=== PATIENT | female | born 1975 | race Caucasian/White ===

== ENCOUNTER → 2018-02-26 11:30 | Outpatient (CLI) | payer OTHER, SELFPAY ==
--- NOTE | 2018-02-26 11:31 | DI.RAD.S_ITS ---
PROCEDURE: XR WRIST LT MIN 3V INDICATIONS: left wrist pain TECHNIQUE: 4 views of the wrist were acquired. COMPARISON: None. FINDINGS: Bones: No fractures or dislocations. No suspicious bony lesions. Scaphoid view: Scaphoid is intact Soft tissues: No suspicious soft tissue calcifications. IMPRESSION: Unremarkable radiographic examination of left wrist. Dictated by: Israel Rivers M.D. on 02/26/2018 at 13:22 Approved by: Israel Rivers M.D. on 02/26/2018 at 13:25
== END ==
PROVIDERS: Family Provider Family Medicine; PCP Family Medicine; Visit Provider Family Medicine
DX: M25.532 Pain in left wrist (principal)
CPT/HCPCS: 73110

== ENCOUNTER 2018-03-19 16:45 | Outpatient (RCR) | payer OTHER, SELFPAY ==
--- NOTE | 2018-03-01 16:45 | PT.OIE ---
Current Diagnoses Carpal tunnel syndrome, left upper limb (03/01/18) Pain in left wrist (03/01/18) Muscle weakness (generalized) (03/01/18) Other enthesopathies, not elsewhere classified (03/01/18) Past Medical History (Last Reviewed 02/26/18 @ 16:02 by Corina Mandujano LPN) Hypothyroidism (Chronic) Past Surgical History (Last Reviewed 02/26/18 @ 16:02 by Corina Mandujano LPN) History of third molar tooth extraction (Resolved 1995) Provider Visit Care Team Role Provider Type Leonard Dave MD Attending Provider Physician Family Provider Primary Care Provider Specialty: Family Practice Address: [address] [place] [address], [facility] Email: [email or web address] Physical Therapy Initial Evaluation PT-OP-A Visit Information Start: 03/02/18 08:36 Freq: Status: Active Protocol: Document 03/01/18 16:45 DCW (Rec: 03/02/18 08:58 DC [id number]) Out-Patient Physical Therapy Visit Information Visit Information Visit Type Initial Evaluation Visit Start Time 16:45 Visit Stop Time 17:30 Total Visit Minutes 45 Visit Number 1 Number of CLINIC PHYSICIAN Visits 0 Evaluation Information Evaluation Date 03/01/18 PT-OP-B Current Condition Start: 03/02/18 08:36 Freq: Status: Active Protocol: Document 03/01/18 16:45 DCW (Rec: 03/02/18 08:58 [facility] [id number]) Current Condition History of Current Condition Onset Date s/p 5 weeks Current Complaints left wrist pain, weakness History of Current Condition Pt is a 43 year old female presenting with a five week history of left wrist and hand pain. Pt reports that she spent the day water tubing, and thinks she must have been holding on too tightly to the boat pull, because she has been in significant pain ever since. Pt notes the pain limits a lot of her function, making it difficult to cut vegetables, go mountain biking , play her ukulele, or do house work. Pt reports she has been wearing a brace over the last week, which has helped her some, mainly as a reminder to not use her hand, as she does often accidently use it, since she is left-handed. Pt recently had an x-ray taken, which was entirely negative. Treatment Goals Patient/Caregiver Goals I want to get rid of the pain , and to get my hand working again. Prior Functional Status Baseline Function- ADL's Independent Baseline Function- Mobility Independent Baseline Function- Recreation/[place] biking, ukulele Current Functional Impairments (Reported) Functional Limitations- ADL's Difficulty with meal prep and house work. Functional Limitations- Recreation/ Unable to dock guard handlebars of [employer], unable to play chords on her ukDoublePlay Entertainmentle PT-OP-C Subjective Start: 03/02/18 08:36 Freq: Status: Active Protocol: Document 03/01/18 16:45 DCW (Rec: 03/02/18 08:58 DCW [id number]) Patient Questionnaires Quick Dash- Upper Extremity Quick Dash UE Score 77.27 Quick Dash UE Impairment 60 to 79% Impaired (Score 60- 79) OP-PT Pain Assessment Pain Assessment Grid Paper Pain Assessment Grid Completed Yes Location Left Wrist Pain Location Details Palmar surface of wrist, radiating pain to thenar eminence Intensity 5 Scale Used Numeric (1 - 10) Description Sharp Shooting Stabbing Frequency Constant Variations/Patterns Constant 4-5/10 pain, increasing to 7/10 with use Pain Alleviating Factors Cold Splinting PT-OP-F Manual Assessment Start: 03/02/18 08:36 Freq: Status: Active Protocol: Document 03/01/18 16:45 DCW (Rec: 03/02/18 08:58 DCW [id number]) Manual Assessments Soft Tissue Assessment Soft Tissue Mobility Assessment Generalize tenderness over palmar surface of carpals, 3/4 - Wincing and withdrawal. No noted wasting at thenar or hypothenar eminence Joint Mobility Assessment Joint Mobility Assessment Joint mobility WNL, no limitations, no apparent laxity. Pain with ulnar deviation and wrist flexion PT-OP-L Special Tests Start: 03/02/18 08:36 Freq: Status: Active Protocol: Document 03/01/18 16:45 DCW (Rec: 03/02/18 08:58 DCW [id number]) Special Tests Wrist/Hand Special Tests Tinel Sign Test Results Positive over median nerve Revers Phalen's Test Test Results Positive Phalen's Test Test Results Negative Sandra's Test Results Negative PT-OP-M Strength Start: 03/02/18 08:36 Freq: Status: Active Protocol: Document 03/01/18 16:45 DCW (Rec: 03/02/18 08:58 DCW [id number]) Wrist Strength Wrist Manual Muscle Testing Left Flexion (C7) 3+ Fair+ Extension (C6) 5 Normal Ulnar Deviation 4- Good- Radial Deviation 5 Normal Comments Appeared to be limited more by pain than true weakness Hand Medical Appointment Scheduler/Pinch Strength Hand Dominance Hand Dominance Left Hand Strength Right Medical Appointment Scheduler (lbs) 60 Comments three trial average Left Medical Appointment Scheduler (lbs) 53.3 Comments three trial average PT-OP-Q Treatments Start: 03/02/18 08:36 Freq: Status: Active Protocol: Document 03/01/18 16:45 DCW (Rec: 03/02/18 08:58 DCW [id number]) Therapeutic Exercises Sitting Exercises 3 Sitting Exercise Name Ulnar Deviation Side left Resistance Lv 1 Equipment Used T-band 2 Sitting Exercise Name Wrist flexion Side left Resistance Lv 1 Equipment Used T-band 1 Sitting Exercise Name Thera-putty dock guard strengthening Side left Resistance Green PT-OP-R Modalities Start: 03/02/18 08:36 Freq: Status: Active Protocol: Document 03/01/18 16:45 DCW (Rec: 03/02/18 10:45 DCW [id number]) Ultrasound Therapy Treatment Left Volar Wrist Treatment Duration (minutes) 5 Patient Position Sitting Coupling Medium Ultrasound Gel Applicator Size (cm2) 2 Frequency Setting (mHz) 3 Duty Cycle 50% Intensity Setting (w/cm2) 0.8 PT-OP-T Assessment and Plan Start: 03/02/18 08:36 Freq: Status: Active Protocol: Document 03/01/18 16:45 DCW (Rec: 03/02/18 08:58 DCW [id number]) Physical Therapy Assessment Rehab Potential Rehabilitation Potential Good Evaluation Complexity Number of Personal Factors/Comorbidities 0 Number of Body Systems Impaired 1-2 Clinical Presentation at Evaluation Stable Impairments Impairments Functional Mobility Pain Soft Tissue Mobility Strength Goals Four Impairment Activity participation Short Term Goal (STG) Pt to perform food prep for family meals with no pain for one full week STG Duration 03/31/18 Tdp Displays Analyst Goal (LTG) Pt to play [employer] in [place] for 30 minutes with no increased symptoms LTG Duration 05/01/18 Three Impairment Medical Appointment Scheduler Strength Short Term Goal (STG) Three-trail average dock guard strength L=R STG Duration 03/31/18 Two Impairment Positive Special Testing Tdp Displays Analyst Goal (LTG) Negative Reverse Phalen's test Negative Tinel sign LTG Duration 05/01/18 One Impairment Pt does not have an appropriate Home Exercise Program Short Term Goal (STG) Pt to be independent and consistent with HEP STG Duration 03/31/18 Assessment Summary Assessment Pt presents with signs and symptoms of left wrist flexor tendonitis secondary to overuse, with an additional complication of the swelling and inflammation likely causing carpal tunnel syndrome /compression. In order for the patient to return to her normal daily and recreational activities, she will likely benefit from skilled therapy focusing on improving strength and wrist mobility, increasing dock guard strength, and decreasing median nerve impingement. Pt should also benefit from modalities such as ultrasound and iontophoresis (/c Dexamethasone) to decrease inflammation. Physical Therapy Plan Frequency and Duration Frequency of Treatment 2x/Week Duration of Treatment 12 weeks Plan of Care Start Date 03/01/18 Plan of Care End Date 05/24/18 Therapeutic Interventions Therapeutic Interventions Home Exercise Program Joint Mobilizations Manual Therapy Self-Care/Home Management Soft Tissue Mobilization Therapeutic Activities Therapeutic Exercises Modalities Cold Pack/Ice Massage Electric Stimulation Hot Packs Iontophoresis Ultrasound Next Visit Focus/Plan Next Note Type Treatment Note Next Visit Plan US, Ionto, wrist strengthening , manual therapy
--- NOTE | 2018-03-01 16:45 | PT.OPPOC ---
Current Diagnoses Carpal tunnel syndrome, left upper limb (03/01/18) Pain in left wrist (03/01/18) Muscle weakness (generalized) (03/01/18) Other enthesopathies, not elsewhere classified (03/01/18) Provider Visit Care Team Role Provider Type Leonard Dave MD Attending Provider Physician Family Provider Primary Care Provider Specialty: Family Practice Address: [address] [place] [address], [facility] Email: [email or web address] Plan Of Care PT-OP-T Assessment and Plan Start: 03/02/18 08:36 Freq: Status: Active Protocol: Document 03/01/18 16:45 DCW (Rec: 03/02/18 08:58 DCW [id number]) Physical Therapy Assessment Rehab Potential Rehabilitation Potential Good Evaluation Complexity Number of Personal Factors/Comorbidities 0 Number of Body Systems Impaired 1-2 Clinical Presentation at Evaluation Stable Impairments Impairments Functional Mobility Pain Soft Tissue Mobility Strength Goals Four Impairment Activity participation Short Term Goal (STG) Pt to perform food prep for family meals with no pain for one full week STG Duration 03/31/18 Intermediate Goal (LTG) Pt to play ukulele for 30 minutes with no increased symptoms LTG Duration 05/01/18 Three Impairment Councilperson Strength Short Term Goal (STG) Three-trail average animal ride attendant strength L=R STG Duration 03/31/18 Two Impairment Positive Special Testing Applied Psychology Chair Goal (LTG) Negative Reverse Phalen's test Negative Tinel sign LTG Duration 05/01/18 One Impairment Pt does not have an appropriate Home Exercise Program Short Term Goal (STG) Pt to be independent and consistent with HEP STG Duration 03/31/18 Assessment Summary Assessment Pt presents with signs and symptoms of left wrist flexor tendonitis secondary to overuse, with an additional complication of the swelling and inflammation likely causing carpal tunnel syndrome /compression. In order for the patient to return to her normal daily and recreational activities, she will likely benefit from skilled therapy focusing on improving strength and wrist mobility, increasing animal ride attendant strength, and decreasing median nerve impingement. Pt should also benefit from modalities such as ultrasound and iontophoresis (/c Dexamethasone) to decrease inflammation. Physical Therapy Plan Frequency and Duration Frequency of Treatment 2x/Week Duration of Treatment 12 weeks Plan of Care Start Date 03/01/18 Plan of Care End Date 05/24/18 Therapeutic Interventions Therapeutic Interventions Home Exercise Program Joint Mobilizations Manual Therapy Self-Care/Home Management Soft Tissue Mobilization Therapeutic Activities Therapeutic Exercises Modalities Cold Pack/Ice Massage Electric Stimulation Hot Packs Iontophoresis Ultrasound Next Visit Focus/Plan Next Note Type Treatment Note Next Visit Plan US, Ionto, wrist strengthening , manual therapy Plan of Care Dates Plan of Care Start Date 03/01/18 Plan of Care End Date 05/24/18 Please Sign and Return: I have reviewed this Plan of Care and certify that the skilled therapy services above are required to meet the patient?s needs. Physician Signature Date Printed Name and Credentials Clinical Instructor Signature Printed Name and Credentials
--- NOTE | 2018-03-06 10:02 | PT.OTN ---
Current Diagnoses Other enthesopathies, not elsewhere classified (03/06/18) Physical Therapy Treatment Note PT-OP-A Visit Information Start: 03/02/18 08:36 Freq: Status: Active Protocol: Document 03/06/18 09:03 LRN (Rec: 03/06/18 09:43 LRN [id number]) Out-Patient Physical Therapy Visit Information Visit Information Visit Type Treatment Note Visit Start Time 09:03 Visit Stop Time 09:48 Total Visit Minutes 45 Visit Number 2 Number of OBSTETRICAL NURSE Visits 0 Evaluation Information Evaluation Date 03/01/18 PT-OP-B Current Condition Start: 03/02/18 08:36 Freq: Status: Active Protocol: Document 03/01/18 16:45 DCW (Rec: 03/02/18 08:58 DCW [id number]) Current Condition History of Current Condition Onset Date s/p 5 weeks Current Complaints left wrist pain, weakness History of Current Condition Pt is a 43 year old female presenting with a five week history of left wrist and hand pain. Pt reports that she spent the day water tubing, and thinks she must have been holding on too tightly to the boat pull, because she has been in significant pain ever since. Pt notes the pain limits a lot of her function, making it difficult to cut vegetables, go mountain biking , play her ukulele, or do house work. Pt reports she has been wearing a brace over the last week, which has helped her some, mainly as a reminder to not use her hand, as she does often accidently use it, since she is left-handed. Pt recently had an x-ray taken, which was entirely negative. Treatment Goals Patient/Caregiver Goals I want to get rid of the pain , and to get my hand working again. Prior Functional Status Baseline Function- ADL's Independent Baseline Function- Mobility Independent Baseline Function- Recreation/Hobbies Mountain biking, ukulele Current Functional Impairments (Reported) Functional Limitations- ADL's Difficulty with meal prep and house work. Functional Limitations- Recreation/ Unable to caustic mixer handlebars of [employer] mountain, unable to play chords on her ukulele PT-OP-C Subjective Start: 03/02/18 08:36 Freq: Status: Active Protocol: Document 03/06/18 09:03 LRN (Rec: 03/06/18 09:43 LRN [id number]) OP-PT Subjective Patient Comments Patient Comments Has been doing the ex but she is sore. Pain is 2/10. Wearing a brace at night and feels swollen at night. Patient Reported Progress Improving PT-OP-F Manual Assessment Start: 03/02/18 08:36 Freq: Status: Active Protocol: Document 03/01/18 16:45 DCW (Rec: 03/02/18 08:58 DCW [id number]) Manual Assessments Soft Tissue Assessment Soft Tissue Mobility Assessment Generalize tenderness over palmar surface of carpals, 3/4 - Wincing and withdrawal. No noted wasting at thenar or hypothenar eminence Joint Mobility Assessment Joint Mobility Assessment Joint mobility WNL, no limitations, no apparent laxity. Pain with ulnar deviation and wrist flexion PT-OP-L Special Tests Start: 03/02/18 08:36 Freq: Status: Active Protocol: Document 03/01/18 16:45 DCW (Rec: 03/02/18 08:58 DCW [id number]) Special Tests Wrist/Hand Special Tests Tinel Sign Test Results Positive over median nerve Revers Phalen's Test Test Results Positive Phalen's Test Test Results Negative Sandra's Test Results Negative PT-OP-M Strength Start: 03/02/18 08:36 Freq: Status: Active Protocol: Document 03/01/18 16:45 DCW (Rec: 03/02/18 08:58 DCW [id number]) Wrist Strength Wrist Manual Muscle Testing Left Flexion (C7) 3+ Fair+ Extension (C6) 5 Normal Ulnar Deviation 4- Good- Radial Deviation 5 Normal Comments Appeared to be limited more by pain than true weakness Hand Watermelon Inspector/Pinch Strength Hand Dominance Hand Dominance Left Hand Strength Right Watermelon Inspector (lbs) 60 Comments three trial average Left Watermelon Inspector (lbs) 53.3 Comments three trial average PT-OP-Q Treatments Start: 03/02/18 08:36 Freq: Status: Active Protocol: Document 03/06/18 09:03 LRN (Rec: 03/06/18 09:43 LRN [id number]) Therapeutic Exercises Supine Exercises 1 Supine Exercise Name Stretch to wrist flexors Side left Comments Self assist & Gentle assist for training Sitting Exercises 3 Sitting Exercise Name Ulnar Deviation Side left Resistance Lv 1 Equipment Used T-band 2 Sitting Exercise Name Wrist flexion/extension Side left Resistance Lv 1 Equipment Used T-band 1 Sitting Exercise Name Thera-putty caustic mixer & finger strengthening Side left Resistance Green Manual Therapy Treatment Soft Tissue Mobilization 1 Body Location L wrist flexors Mobilization Type Cross-Friction Strumming Intensity/Depth Superficial Body Position Supine Comments Depth: As tolerated PT-OP-R Modalities Start: 03/02/18 08:36 Freq: Status: Active Protocol: Document 03/06/18 09:03 LRN (Rec: 03/06/18 09:43 LRN [id number]) Hot Pack/Cold Pack Treatment Cold Pack Location L wrist flexors Patient Position Supine Treatment Duration (minutes) 10 Ultrasound Therapy Treatment Left Volar Wrist Treatment Duration (minutes) 8 Patient Position Supine Coupling Medium Ultrasound Gel Applicator Size (cm2) 2 Frequency Setting (mHz) 3 Mode Setting Pulsed Duty Cycle 50% Intensity Setting (w/cm2) 1.0 PT-OP-T Assessment and Plan Start: 03/02/18 08:36 Freq: Status: Active Protocol: Document 03/06/18 09:03 LRN (Rec: 03/06/18 09:43 LRN [id number]) Physical Therapy Assessment Progress Towards Goals Progress Towards Goals Progressing Toward Goals Assessment Summary Assessment Pain is less. Swelling in L wrist flexors, decreased L wrist ext due to soft tissue tightness. Wrist improved. Further assessment and self care instructions needed for nighttime and throughout the day. Physical Therapy Plan Frequency and Duration Frequency of Treatment 2x/Week Duration of Treatment 12 weeks Plan of Care Start Date 03/01/18 Plan of Care End Date 05/24/18 Next Visit Focus/Plan Next Note Type Treatment Note Next Visit Plan US, Ionto, wrist stretching & strengthening, manual therapy.
--- NOTE | 2018-03-13 14:49 | PT.OTN ---
Current Diagnoses Other enthesopathies, not elsewhere classified (03/13/18) Physical Therapy Treatment Note PT-OP-A Visit Information Start: 03/02/18 08:36 Freq: Status: Active Protocol: Document 03/13/18 09:05 LRN (Rec: 03/13/18 09:51 LRN [id number]) Out-Patient Physical Therapy Visit Information Visit Information Visit Type Treatment Note Visit Start Time 09:05 Visit Stop Time 09:55 Total Visit Minutes 50 Visit Number 3 Number of ROUTE DELIVERY CLERK Visits 0 Evaluation Information Evaluation Date 03/01/18 PT-OP-B Current Condition Start: 03/02/18 08:36 Freq: Status: Active Protocol: Document 03/01/18 16:45 DCW (Rec: 03/02/18 08:58 DCW [id number]) Current Condition History of Current Condition Onset Date s/p 5 weeks Current Complaints left wrist pain, weakness History of Current Condition Pt is a 43 year old female presenting with a five week history of left wrist and hand pain. Pt reports that she spent the day water tubing, and thinks she must have been holding on too tightly to the boat pull, because she has been in significant pain ever since. Pt notes the pain limits a lot of her function, making it difficult to cut vegetables, go mountain biking , play her ukulele, or do house work. Pt reports she has been wearing a brace over the last week, which has helped her some, mainly as a reminder to not use her hand, as she does often accidently use it, since she is left-handed. Pt recently had an x-ray taken, which was entirely negative. Treatment Goals Patient/Caregiver Goals I want to get rid of the pain , and to get my hand working again. Prior Functional Status Baseline Function- ADL's Independent Baseline Function- Mobility Independent Baseline Function- Recreation/Hobbies Mountain biking, ukulele Current Functional Impairments (Reported) Functional Limitations- ADL's Difficulty with meal prep and house work. Functional Limitations- Recreation/ Unable to restuarant crew worker handlebars of Hobbies mountain, unable to play chords on her ukulele PT-OP-C Subjective Start: 03/02/18 08:36 Freq: Status: Active Protocol: Document 03/13/18 09:05 LRN (Rec: 03/13/18 09:51 LRN [id number]) OP-PT Subjective Patient Comments Patient Comments Improvement not as significant . Pt started back doing yoga and mountain bike riding the past few days because she felt so good. The activities caused onset of pain. Can write some without pain. Pain no longer constant. Patient Reported Progress Improving OP-PT Pain Assessment Pain Assessment Grid Paper Pain Assessment Grid Completed No Location Left Wrist Pain Location Details Palmar surface of wrist, radiating pain to thenar eminence Intensity 5 Scale Used Numeric (1 - 10) Description Aching Pressure Frequency Intermittent Variations/Patterns 7/10 with use Pain Alleviating Factors Cold Splinting PT-OP-F Manual Assessment Start: 03/02/18 08:36 Freq: Status: Active Protocol: Document 03/01/18 16:45 DCW (Rec: 03/02/18 08:58 DCW [id number]) Manual Assessments Soft Tissue Assessment Soft Tissue Mobility Assessment Generalize tenderness over palmar surface of carpals, 3/4 - Wincing and withdrawal. No noted wasting at thenar or hypothenar eminence Joint Mobility Assessment Joint Mobility Assessment Joint mobility WNL, no limitations, no apparent laxity. Pain with ulnar deviation and wrist flexion PT-OP-L Special Tests Start: 03/02/18 08:36 Freq: Status: Active Protocol: Document 03/01/18 16:45 DCW (Rec: 03/02/18 08:58 DCW [id number]) Special Tests Wrist/Hand Special Tests Tinel Sign Test Results Positive over median nerve Revers Phalen's Test Test Results Positive Phalen's Test Test Results Negative Sandra's Test Results Negative PT-OP-M Strength Start: 03/02/18 08:36 Freq: Status: Active Protocol: Document 03/01/18 16:45 DCW (Rec: 03/02/18 08:58 DCW [id number]) Wrist Strength Wrist Manual Muscle Testing Left Flexion (C7) 3+ Fair+ Extension (C6) 5 Normal Ulnar Deviation 4- Good- Radial Deviation 5 Normal Comments Appeared to be limited more by pain than true weakness Hand Printing Supplies Sales Representative/Pinch Strength Hand Dominance Hand Dominance Left Hand Strength Right Printing Supplies Sales Representative (lbs) 60 Comments three trial average Left Printing Supplies Sales Representative (lbs) 53.3 Comments three trial average PT-OP-Q Treatments Start: 03/02/18 08:36 Freq: Status: Active Protocol: Document 03/13/18 09:05 LRN (Rec: 03/13/18 09:51 LRN [id number]) Cardio Equipment Upper Body Ergometer (UBE) Duration (Minutes) 3 Height 2.5 Therapeutic Exercises Supine Exercises 1 Supine Exercise Name Stretch to wrist flexors Side left Comments Self assist in different supinated position Manual Therapy Treatment Soft Tissue Mobilization 1 Body Location L wrist flexors Mobilization Type Cross-Friction Strumming Intensity/Depth Superficial Body Position Supine Comments Depth: As tolerated PT-OP-R Modalities Start: 03/02/18 08:36 Freq: Status: Active Protocol: Document 03/13/18 09:05 LRN (Rec: 03/13/18 09:51 LRN [id number]) Hot Pack/Cold Pack Treatment Cold Pack Location L wrist flexors & wrist Patient Position Supine Treatment Duration (minutes) 10 Ultrasound Therapy Treatment Left Wrist flexor muscle bellies Treatment Duration (minutes) 8 Patient Position Supine Applicator Size (cm2) 2 Frequency Setting (mHz) 1 Mode Setting Pulsed Intensity Setting (w/cm2) 1.0 Left Volar Wrist Treatment Duration (minutes) 5 Patient Position Supine Coupling Medium Ultrasound Gel Applicator Size (cm2) 2 Frequency Setting (mHz) 3 Mode Setting Pulsed Duty Cycle 50% Intensity Setting (w/cm2) 0.8 PT-OP-T Assessment and Plan Start: 03/02/18 08:36 Freq: Status: Active Protocol: Document 03/13/18 09:05 LRN (Rec: 03/13/18 09:51 LRN [id number]) Physical Therapy Assessment Impairments Impairments Functional Mobility Pain Soft Tissue Mobility Strength Goals Four Impairment Activity participation Short Term Goal (STG) Pt to perform food prep for family meals with no pain for one full week STG Duration 03/31/18 Electrotype Caster Goal (LTG) Pt to play Iptunele for 30 minutes with no increased symptoms LTG Duration 05/01/18 Three Impairment Printing Supplies Sales Representative Strength Short Term Goal (STG) Three-trail average restuarant crew worker strength L=R STG Duration 03/31/18 Two Impairment Positive Special Testing Longterm Goal (LTG) Negative Reverse Phalen's test Negative Tinel sign LTG Duration 05/01/18 One Impairment Pt does not have an appropriate Home Exercise Program Short Term Goal (STG) Pt to be independent and consistent with HEP STG Duration 03/31/18 Progress Towards Goals Progress Towards Goals Progressing Toward Goals Assessment Summary Assessment + Tinel's Sign. Tenderness in L wrist flexors muscle belly. Tightness in wrist flexors with stretch. Pt in new flare up state although pain is now intermittent. Physical Therapy Plan Frequency and Duration Frequency of Treatment 2x/Week Duration of Treatment 12 weeks Plan of Care Start Date 03/01/18 Plan of Care End Date 05/24/18 Therapeutic Interventions Therapeutic Interventions Home Exercise Program Joint Mobilizations Manual Therapy Self-Care/Home Management Soft Tissue Mobilization Therapeutic Activities Therapeutic Exercises Modalities Cold Pack/Ice Massage Electric Stimulation Hot Packs Iontophoresis Ultrasound Next Visit Focus/Plan Next Note Type Treatment Note Next Visit Plan US, Ionto, wrist stretching & strengthening, manual therapy.
--- NOTE | 2018-03-15 15:30 | PT.OTN ---
Current Diagnoses Other enthesopathies, not elsewhere classified (03/15/18) Physical Therapy Treatment Note PT-OP-A Visit Information Start: 03/02/18 08:36 Freq: Status: Active Protocol: Document 03/15/18 09:13 LRN (Rec: 03/15/18 09:47 LRN [id number]) Out-Patient Physical Therapy Visit Information Visit Information Visit Type Treatment Note Visit Start Time 09:13 Visit Stop Time 09:50 Total Visit Minutes 37 Visit Number 4 Number of LAND MANAGEMENT FORESTER Visits 0 Evaluation Information Evaluation Date 03/01/18 PT-OP-B Current Condition Start: 03/02/18 08:36 Freq: Status: Active Protocol: Document 03/01/18 16:45 DCW (Rec: 03/02/18 08:58 DCW [id number]) Current Condition History of Current Condition Onset Date s/p 5 weeks Current Complaints left wrist pain, weakness History of Current Condition Pt is a 43 year old female presenting with a five week history of left wrist and hand pain. Pt reports that she spent the day water tubing, and thinks she must have been holding on too tightly to the boat pull, because she has been in significant pain ever since. Pt notes the pain limits a lot of her function, making it difficult to cut vegetables, go mountain biking , play her ukulele, or do house work. Pt reports she has been wearing a brace over the last week, which has helped her some, mainly as a reminder to not use her hand, as she does often accidently use it, since she is left-handed. Pt recently had an x-ray taken, which was entirely negative. Treatment Goals Patient/Caregiver Goals I want to get rid of the pain , and to get my hand working again. Prior Functional Status Baseline Function- ADL's Independent Baseline Function- Mobility Independent Baseline Function- Recreation/Hobbies Mountain biking, ukulele Current Functional Impairments (Reported) Functional Limitations- ADL's Difficulty with meal prep and house work. Functional Limitations- Recreation/ Unable to retoucher handlebars of Hobbies mountain, unable to play chords on her ukulele PT-OP-C Subjective Start: 03/02/18 08:36 Freq: Status: Active Protocol: Document 03/15/18 09:13 LRN (Rec: 03/15/18 09:47 LRN [id number]) OP-PT Subjective Patient Comments Patient Comments 13' late due to child at home. States after last treatment her forearm and hand were achy OP-PT Pain Assessment Pain Assessment Grid Paper Pain Assessment Grid Completed No Location Left Wrist Pain Location Details Palmar surface of wrist, radiating pain to thenar eminence Intensity 2 Description Aching Pressure PT-OP-F Manual Assessment Start: 03/02/18 08:36 Freq: Status: Active Protocol: Document 03/01/18 16:45 DCW (Rec: 03/02/18 08:58 DCW [id number]) Manual Assessments Soft Tissue Assessment Soft Tissue Mobility Assessment Generalize tenderness over palmar surface of carpals, 3/4 - Wincing and withdrawal. No noted wasting at thenar or hypothenar eminence Joint Mobility Assessment Joint Mobility Assessment Joint mobility WNL, no limitations, no apparent laxity. Pain with ulnar deviation and wrist flexion PT-OP-L Special Tests Start: 03/02/18 08:36 Freq: Status: Active Protocol: Document 03/01/18 16:45 DCW (Rec: 03/02/18 08:58 DCW [id number]) Special Tests Wrist/Hand Special Tests Tinel Sign Test Results Positive over median nerve Revers Phalen's Test Test Results Positive Phalen's Test Test Results Negative Sandra's Test Results Negative PT-OP-M Strength Start: 03/02/18 08:36 Freq: Status: Active Protocol: Document 03/01/18 16:45 DCW (Rec: 03/02/18 08:58 DCW [id number]) Wrist Strength Wrist Manual Muscle Testing Left Flexion (C7) 3+ Fair+ Extension (C6) 5 Normal Ulnar Deviation 4- Good- Radial Deviation 5 Normal Comments Appeared to be limited more by pain than true weakness Hand Band Top Maker/Pinch Strength Hand Dominance Hand Dominance Left Hand Strength Right Band Top Maker (lbs) 60 Comments three trial average Left Band Top Maker (lbs) 53.3 Comments three trial average PT-OP-Q Treatments Start: 03/02/18 08:36 Freq: Status: Active Protocol: Document 03/15/18 09:13 LRN (Rec: 03/15/18 16:49 LRN [id number]) Cardio Equipment Recumbent Elliptical (Social DJ) Duration (Minutes) 2 Resistance 1 Therapeutic Exercises Supine Exercises 1 Supine Exercise Name Stretch to wrist flexors Side left Comments Self assist in different supinated position Manual Therapy Treatment Soft Tissue Mobilization 2 Body Location L Upper Trapezius/ Supraspinatus Mobilization Type Myofascial Release Sustained Pressure Body Position Supine 1 Body Location L wrist flexors Mobilization Type Cross-Friction Strumming Intensity/Depth Superficial Body Position Supine Comments Depth: As tolerated Manual Traction Cervical Details Axial traction Body Position Supine Nerve Glides 1 Nerve Ulnar Details Supine with arm in 45-90 deg's AB, full ER, head neutral Comments Stretch provided: Wrist ext Head R sidebend PT-OP-R Modalities Start: 03/02/18 08:36 Freq: Status: Active Protocol: Document 03/15/18 09:13 LRN (Rec: 03/15/18 16:49 LRN [id number]) Hot Pack/Cold Pack Treatment Cold Pack Location L wrist flexors & wrist Patient Position Supine Treatment Duration (minutes) 10 Iontophoresis Treatment Left Volar Wrist Treatment Medication Dexamethasone (-) Medication Amount (mL) (ml) 1 Medication Dosage 4mg/mL Active Electrode Placement L Volar wrist/carpel tunnel Dispersive Electrode Placement L wrist flexors Treatment Duration (minutes) 3 Patient Tolerance Good Comment Treatment Comment Iontophoresis - Up to 4 hour wear time after placement PT-OP-T Assessment and Plan Start: 03/02/18 08:36 Freq: Status: Active Protocol: Document 03/15/18 09:13 LRN (Rec: 03/15/18 09:47 LRN [id number]) Physical Therapy Assessment Assessment Summary Assessment Held Ultrasound due to ache in forearm. Pt has low tolerance to exercise. Pt still in flare up. Physical Therapy Plan Frequency and Duration Frequency of Treatment 2x/Week Duration of Treatment 12 weeks Plan of Care Start Date 03/01/18 Plan of Care End Date 05/24/18 Next Visit Focus/Plan Next Note Type Treatment Note Next Visit Plan US, Ionto, wrist stretching & strengthening, manual therapy.
--- NOTE | 2018-03-19 18:33 | PT.OTN ---
Current Diagnoses Other enthesopathies, not elsewhere classified (03/19/18) Physical Therapy Treatment Note PT-OP-A Visit Information Start: 03/02/18 08:36 Freq: Status: Active Protocol: Document 03/19/18 18:06 [facility] (Rec: 03/19/18 18:33 [facility] [id number]) Out-Patient Physical Therapy Visit Information Visit Information Visit Type Treatment Note Visit Start Time 16:45 Visit Stop Time 17:55 Total Visit Minutes 55 Visit Number 5 Number of SECURED ENTRANCE MONITOR Visits 0 PT-OP-B Current Condition Start: 03/02/18 08:36 Freq: Status: Active Protocol: Document 03/01/18 16:45 DCW (Rec: 03/02/18 08:58 DCW [id number]) Current Condition History of Current Condition Onset Date s/p 5 weeks Current Complaints left wrist pain, weakness History of Current Condition Pt is a 43 year old female presenting with a five week history of left wrist and hand pain. Pt reports that she spent the day water tubing, and thinks she must have been holding on too tightly to the boat pull, because she has been in significant pain ever since. Pt notes the pain limits a lot of her function, making it difficult to cut vegetables, go mountain biking , play her ukulele, or do house work. Pt reports she has been wearing a brace over the last week, which has helped her some, mainly as a reminder to not use her hand, as she does often accidently use it, since she is left-handed. Pt recently had an x-ray taken, which was entirely negative. Treatment Goals Patient/Caregiver Goals I want to get rid of the pain , and to get my hand working again. Prior Functional Status Baseline Function- ADL's Independent Baseline Function- Mobility Independent Baseline Function- Recreation/Hobbies Mountain biking, ukulele Current Functional Impairments (Reported) Functional Limitations- ADL's Difficulty with meal prep and house work. Functional Limitations- Recreation/ Unable to dynamo repairer handlebars of Hobbies mountain, unable to play chords on her ukulele PT-OP-C Subjective Start: 03/02/18 08:36 Freq: Status: Active Protocol: Document 03/19/18 18:06 [facility] (Rec: 03/19/18 18:33 [facility] [id number]) OP-PT Subjective Patient Comments Patient Comments Pt reports that since last treatment session her neck has been hurting down her arm. Reports she stopped doing her nerve glide exercise d/t significant pain with them. Pt reports she thinks wrist is a little better but still achey . Reports she had been noticing her neck/shoulder region more. PT-OP-F Manual Assessment Start: 03/02/18 08:36 Freq: Status: Active Protocol: Document 03/01/18 16:45 DCW (Rec: 03/02/18 08:58 DCW [id number]) Manual Assessments Soft Tissue Assessment Soft Tissue Mobility Assessment Generalize tenderness over palmar surface of carpals, 3/4 - Wincing and withdrawal. No noted wasting at thenar or hypothenar eminence Joint Mobility Assessment Joint Mobility Assessment Joint mobility WNL, no limitations, no apparent laxity. Pain with ulnar deviation and wrist flexion PT-OP-L Special Tests Start: 03/02/18 08:36 Freq: Status: Active Protocol: Document 03/01/18 16:45 DCW (Rec: 03/02/18 08:58 DCW [id number]) Special Tests Wrist/Hand Special Tests Tinel Sign Test Results Positive over median nerve Revers Phalen's Test Test Results Positive Phalen's Test Test Results Negative Sandra's Test Results Negative PT-OP-M Strength Start: 03/02/18 08:36 Freq: Status: Active Protocol: Document 03/01/18 16:45 DCW (Rec: 03/02/18 08:58 DCW [id number]) Wrist Strength Wrist Manual Muscle Testing Left Flexion (C7) 3+ Fair+ Extension (C6) 5 Normal Ulnar Deviation 4- Good- Radial Deviation 5 Normal Comments Appeared to be limited more by pain than true weakness Hand Assistant Bookkeeper/Pinch Strength Hand Dominance Hand Dominance Left Hand Strength Right Assistant Bookkeeper (lbs) 60 Comments three trial average Left Assistant Bookkeeper (lbs) 53.3 Comments three trial average PT-OP-Q Treatments Start: 03/02/18 08:36 Freq: Status: Active Protocol: Document 03/19/18 18:06 [facility] (Rec: 03/19/18 18:33 [facility] [id number]) Manual Therapy Treatment Soft Tissue Mobilization 3 Body Location volar surface & carpal tunnel Mobilization Type Sustained Pressure Intensity/Depth Moderate 2 Body Location L Upper Trapezius/ Supraspinatus Mobilization Type Myofascial Release Sustained Pressure Body Position Supine 1 Body Location L wrist flexors Mobilization Type Cross-Friction Strumming Intensity/Depth Superficial Body Position Supine Comments Depth: As tolerated Joint Mobilizations 1 Joint 1st rib Direction caudal Body Position Sidelying Comments taught for self mobs Manual Techniques 1 Type c/r into post depression PT-OP-R Modalities Start: 03/02/18 08:36 Freq: Status: Active Protocol: Document 03/19/18 18:06 [facility] (Rec: 03/19/18 18:33 [facility] [id number]) Hot Pack/Cold Pack Treatment Cold Pack Location L wrist flexors & wrist Patient Position Supine Treatment Duration (minutes) 10 Iontophoresis Treatment Left Volar Wrist Treatment Medication Dexamethasone (-) Medication Amount (mL) (ml) 1 Medication Dosage 4mg/mL Active Electrode Placement L Volar wrist/carpel tunnel Dispersive Electrode Placement L wrist flexors Treatment Duration (minutes) 3 Patient Tolerance Good Ultrasound Therapy Treatment Left Volar Wrist Treatment Duration (minutes) 4 Patient Position Supine Coupling Medium Ultrasound Gel Applicator Size (cm2) 2 Frequency Setting (mHz) 3 Mode Setting Pulsed Duty Cycle 50% Intensity Setting (w/cm2) 0.8 Comments stopped d/t feeling of tingling PT-OP-T Assessment and Plan Start: 03/02/18 08:36 Freq: Status: Active Protocol: Document 03/19/18 18:06 [facility] (Rec: 03/19/18 18:33 [facility] [id number]) Physical Therapy Assessment Goals Four Impairment Activity participation Short Term Goal (STG) Pt to perform food prep for family meals with no pain for one full week STG Duration 03/31/18 Alf Goal (LTG) Pt to play [email or web address] for 30 minutes with no increased symptoms LTG Duration 05/01/18 Three Impairment Assistant Bookkeeper Strength Short Term Goal (STG) Three-trail average dynamo repairer strength L=R STG Duration 03/31/18 Two Impairment Positive Special Testing Solar Field Installation Crew Member Goal (LTG) Negative Reverse Phalen's test Negative Tinel sign LTG Duration 05/01/18 One Impairment Pt does not have an appropriate Home Exercise Program Short Term Goal (STG) Pt to be independent and consistent with HEP STG Duration 03/31/18 Assessment Summary Assessment Pt had significant neural tension at 45 deg which improved to 90 deg after session. Pt reported dec neck pain after rx. Pt possibly has neural tension playing a role in her pain. Physical Therapy Plan Frequency and Duration Frequency of Treatment 2x/Week Duration of Treatment 12 weeks Plan of Care Start Date 03/01/18 Plan of Care End Date 05/24/18 Next Visit Focus/Plan Next Note Type Treatment Note Next Visit Plan Cont to evaluate for neural tension
--- NOTE | 2018-06-13 10:52 | PT.OPDS ---
Current Diagnoses Other enthesopathies, not elsewhere classified (03/19/18) Provider Visit Care Team Role Provider Type Leonard Dave MD Attending Provider Physician Family Provider Primary Care Provider Specialty: Family Practice Address: [address] [place] [address], [facility] Email: [email or web address] Visit Number Visit Number 5 Discharge Summary PT-OP-B Current Condition Start: 03/02/18 08:36 Freq: Status: Active Protocol: Document 03/01/18 16:45 DCW (Rec: 03/02/18 08:58 DCW [id number]) Current Condition History of Current Condition Onset Date s/p 5 weeks Current Complaints left wrist pain, weakness History of Current Condition Pt is a 43 year old female presenting with a five week history of left wrist and hand pain. Pt reports that she spent the day water tubing, and thinks she must have been holding on too tightly to the boat pull, because she has been in significant pain ever since. Pt notes the pain limits a lot of her function, making it difficult to cut vegetables, go mountain biking , play her ukulele, or do house work. Pt reports she has been wearing a brace over the last week, which has helped her some, mainly as a reminder to not use her hand, as she does often accidently use it, since she is left-handed. Pt recently had an x-ray taken, which was entirely negative. Treatment Goals Patient/Caregiver Goals I want to get rid of the pain , and to get my hand working again. Prior Functional Status Baseline Function- ADL's Independent Baseline Function- Mobility Independent Baseline Function- Recreation/Hobbies Mountain biking, ukulele Current Functional Impairments (Reported) Functional Limitations- ADL's Difficulty with meal prep and house work. Functional Limitations- Recreation/ Unable to newcomer hostess handlebars of Hobbies mountain, unable to play chords on her ukulele PT-OP-C Subjective Start: 03/02/18 08:36 Freq: Status: Active Protocol: Document 03/19/18 18:06 LR (Rec: 03/19/18 18:33 [facility] [id number]) OP-PT Subjective Patient Comments Patient Comments Pt reports that since last treatment session her neck has been hurting down her arm. Reports she stopped doing her nerve glide exercise d/t significant pain with them. Pt reports she thinks wrist is a little better but still achey . Reports she had been noticing her neck/shoulder region more. PT-OP-F Manual Assessment Start: 03/02/18 08:36 Freq: Status: Active Protocol: Document 03/01/18 16:45 DCW (Rec: 03/02/18 08:58 DCW [id number]) Manual Assessments Soft Tissue Assessment Soft Tissue Mobility Assessment Generalize tenderness over palmar surface of carpals, 3/4 - Wincing and withdrawal. No noted wasting at thenar or hypothenar eminence Joint Mobility Assessment Joint Mobility Assessment Joint mobility WNL, no limitations, no apparent laxity. Pain with ulnar deviation and wrist flexion PT-OP-L Special Tests Start: 03/02/18 08:36 Freq: Status: Active Protocol: Document 03/01/18 16:45 DCW (Rec: 03/02/18 08:58 DCW [id number]) Special Tests Wrist/Hand Special Tests Tinel Sign Test Results Positive over median nerve Revers Phalen's Test Test Results Positive Phalen's Test Test Results Negative Sandra's Test Results Negative PT-OP-M Strength Start: 03/02/18 08:36 Freq: Status: Active Protocol: Document 03/01/18 16:45 DCW (Rec: 03/02/18 08:58 DCW [id number]) Wrist Strength Wrist Manual Muscle Testing Left Flexion (C7) 3+ Fair+ Extension (C6) 5 Normal Ulnar Deviation 4- Good- Radial Deviation 5 Normal Comments Appeared to be limited more by pain than true weakness Hand Conservation Coordinator/Pinch Strength Hand Dominance Hand Dominance Left Hand Strength Right Conservation Coordinator (lbs) 60 Comments three trial average Left Conservation Coordinator (lbs) 53.3 Comments three trial average PT-OP-T Assessment and Plan Start: 03/02/18 08:36 Freq: Status: Active Protocol: Document 06/13/18 10:50 DCW (Rec: 06/13/18 10:52 DCW [id number]) Physical Therapy Assessment Impairments Impairments Functional Mobility Pain Soft Tissue Mobility Strength Goals Four Impairment Activity participation Short Term Goal (STG) Pt to perform food prep for family meals with no pain for one full week STG Duration 03/31/18 Automation Machine Operator Goal (LTG) Pt to play ukulele for 30 minutes with no increased symptoms LTG Duration 05/01/18 Three Impairment Conservation Coordinator Strength Short Term Goal (STG) Three-trail average newcomer hostess strength L=R STG Duration 03/31/18 Two Impairment Positive Special Testing Automation Machine Operator Goal (LTG) Negative Reverse Phalen's test Negative Tinel sign LTG Duration 05/01/18 One Impairment Pt does not have an appropriate Home Exercise Program Short Term Goal (STG) Pt to be independent and consistent with HEP STG Duration 03/31/18 Assessment Summary Assessment Pt canceled her final two scheduled appointments, and has now not been seen in nearly three months. Pt will be discharged from skilled therapy at this time. Physical Therapy Plan Frequency and Duration Frequency of Treatment 2x/Week Duration of Treatment 12 weeks Plan of Care Start Date 03/01/18 Plan of Care End Date 05/24/18 Discharge Physical Therapy Discharge Reasons No Longer Attending PT
== END 2018-06-21 13:45 ==
LOC: PHYS 16:45
PROVIDERS: Family Provider Family Medicine; PCP Family Medicine; Visit Provider Family Medicine
DX: M77.8 Other enthesopathies, not elsewhere classified (principal)
CPT/HCPCS: 97010; 97035; 97110; 97140; 97161

== ENCOUNTER → 2019-04-23 17:01 | Outpatient (CLI) | payer OTHER, SELFPAY ==
--- NOTE | 2019-04-23 | DI.MG.S_ITS ---
BILATERAL DIGITAL SCREENING MAMMOGRAM 3D/2D WITH CAD: 04/23/2019 CLINICAL: Routine screening. Family history of breast cancer. Comparison is made to exams dated: 03/17/2017 mammogram, 03/04/2014 mammogram, and 07/13/2009 mammogram - [facility]. There are scattered fibroglandular elements in both breasts. Current study was also evaluated with a Computer Aided Detection (CAD) system. No significant masses, calcifications, or other findings are seen in either breast. There has been no significant interval change. IMPRESSION: NEGATIVE There is no mammographic evidence of malignancy. A 1 year screening mammogram is recommended. This exam was interpreted at Station ID: [id number]. NOTE: For mammograms, a report in lay terms will be sent to the patient. Approximately 15% of breast malignancies will not be visualized mammographically. In the management of a palpable breast mass, a negative mammogram must not discourage biopsy of a clinically suspicious lesion. Electronically Signed By: Regan spence/idania:04/24/2019 08:26:08 letter sent: Normal Exam ACR BI-RADS Category 1: Negative 3341F
== END ==
PROVIDERS: Family Provider Family Medicine; PCP Family Medicine; Visit Provider Obstetrics & Gynecology
DX: Z12.31 Encounter for screening mammogram for malignant neoplasm of breast (principal); Z80.3 Family history of malignant neoplasm of breast
CPT/HCPCS: 77063; 77067

== ENCOUNTER → 2019-07-19 16:34 | Outpatient (CLI) | payer OTHER, SELFPAY ==
[2019-07-19 19:07] LABS: Thyroid Stimulating Hormone 0.17 uIU/mL (0.47-4.68)
== END ==
PROVIDERS: Family Provider Family Medicine; PCP Family Medicine; Visit Provider Family Medicine
DX: E03.9 Hypothyroidism, unspecified (principal)
CPT/HCPCS: 36415; 84443

== ENCOUNTER → 2019-11-27 10:53 | Outpatient (CLI) | payer OTHER, SELFPAY ==
[2019-11-27 11:50] LABS: Add Manual Diff / Slide Review NO; Basophils Absolute Auto 0 /uL (0-100); Basophils Percent Auto 0.8 % (0-2); Eosinophils Absolute Auto 100 /uL (0-450); Eosinophils Percent Auto 2.2 % (2-4); Hematocrit 37.6 % (36-46); Hemoglobin 12.6 g/dL (12.0-16.0); Lymphocytes Absolute Auto 1300 /uL (1100-4500); Lymphocytes Percent Auto 21.9 % (25-40); Mean Corpuscular HGB Conc 33.6 % (30-36); Mean Corpuscular Hemoglobin 30.2 PG (26-34); Mean Corpuscular Volume 89.9 fL (80-100); Monocytes Absolute Auto 500 /uL (0-900); Monocytes Percent Auto 9.1 % (3-14); Neutrophils Absolute Auto 3800 /uL (1500-7000); Platelet Count 241 X10^3/uL (150-400); Red Blood Cell Count 4.18 X10^6/uL (4.0-5.2); Red Cell Distribution Width 12.4 % (11.6-14.8); White Blood Cell Count 5.8 X10^3/uL (4.5-11.0)
[2019-11-27 11:58] LABS: Alanine Aminotransferase 34 IU/L (<35); Albumin 4.6 g/dL (3.5-5.0); Albumin Globulin Ratio 1.7 (1.0-2.8); Alkaline Phosphatase 60 U/L (38-126); Aspartate Aminotransferase 35 IU/L (14-36); BUN Creatinine Ratio 18.7 (6-22); Bilirubin Total 0.3 mg/dL (0.2-1.3); Blood Urea Nitrogen 14 mg/dL (7-17); Calcium 10.2 mg/dL (8.4-10.2); Carbon Dioxide 27 mmol/L (22-32); Chloride 103 mmol/L (98-107); Estimated Glomerular Filt Rate > 60.0 mL/min (>60); Globulin 2.7 g/dL (1.7-4.1); Glucose 95 mg/dL (70-100); HEMOLYSIS < 15 (0-50); Potassium 4.4 mmol/L (3.4-5.1); Sodium 138 mmol/L (137-145); Total Protein 7.3 g/dL (6.3-8.2)
[2019-11-27 12:44] LABS: Thyroid Stimulating Hormone 0.37 uIU/mL (0.47-4.68)
== END ==
PROVIDERS: Obstetrics & Gynecology; Family Provider Family Medicine; PCP Family Medicine; Referring Provider Family Medicine; Visit Provider Family Medicine
DX: R00.2 Palpitations (principal); Z86.39 Personal history of other endocrine, nutritional and metabolic disease
CPT/HCPCS: 36415; 80053; 84443; 85025

== ENCOUNTER → 2020-02-06 08:29 | Outpatient (CLI) | payer OTHER, SELFPAY ==
[2020-02-06 10:55] LABS: Thyroid Stimulating Hormone 3.69 uIU/mL (0.47-4.68)
== END ==
PROVIDERS: Family Provider Family Medicine; PCP Family Medicine; Referring Provider Family Medicine; Visit Provider Family Medicine
DX: E03.9 Hypothyroidism, unspecified (principal)
CPT/HCPCS: 36415; 84443

== ENCOUNTER → 2020-05-19 17:47 | Outpatient (CLI) | payer OTHER, SELFPAY ==
--- NOTE | 2020-05-19 | DI.MG.S_ITS ---
BILATERAL DIGITAL SCREENING MAMMOGRAM 3D/2D WITH CAD: 05/19/2020 CLINICAL: Routine screening. Family history of breast cancer. Comparison is made to exams dated: 04/23/2019 mammogram, 03/17/2017 mammogram, and 03/04/2014 mammogram - [facility]. There are scattered fibroglandular elements in both breasts. Current study was also evaluated with a Computer Aided Detection (CAD) system. No significant masses, calcifications, or other findings are seen in either breast. There has been no significant interval change. IMPRESSION: NEGATIVE There is no mammographic evidence of malignancy. A 1 year screening mammogram is recommended. This exam was interpreted at Station ID: [id number]. NOTE: For mammograms, a report in lay terms will be sent to the patient. Approximately 15% of breast malignancies will not be visualized mammographically. In the management of a palpable breast mass, a negative mammogram must not discourage biopsy of a clinically suspicious lesion. Electronically Signed By: Robin juares/idania:05/20/2020 09:43:03 letter sent: Normal Exam ACR BI-RADS Category 1: Negative 3341F
== END ==
PROVIDERS: Family Provider Family Medicine; PCP Family Medicine; Referring Provider Family Medicine; Visit Provider Family Medicine
DX: Z12.31 Encounter for screening mammogram for malignant neoplasm of breast (principal); Z80.3 Family history of malignant neoplasm of breast
CPT/HCPCS: 77063; 77067

== ENCOUNTER → 2020-08-26 11:00 | Outpatient (CLI) | payer OTHER, SELFPAY ==
[2020-08-26] MEDS: COVID-19 VACC, Ad26(JANSSEN)/PF 0.5 ML IM (11:24)
== END ==
PROVIDERS: Family Provider Family Medicine; PCP Family Medicine; Visit Provider Internal Medicine
DX: Z23 Encounter for immunization (principal)
CPT/HCPCS: 0031A; 91303

== ENCOUNTER → 2021-02-16 15:50 | Outpatient (CLI) | payer OTHER, SELFPAY ==
[2021-02-16 18:51] LABS: Free T4, Direct Thyroxine 1.21 ng/dL (0.78-2.19)
[2021-02-16 18:53] LABS: Follicle Stimulating Hormone 3.43 mIU/mL; Luteinizing Hormone 9.11 mIU/mL
[2021-02-16 19:05] LABS: Thyroid Stimulating Hormone 3.56 uIU/mL (0.47-4.68)
[2021-02-23 07:38] LABS: Testosterone Free 0.39 ng/dL (0.10-0.85); Testosterone Total 17.7 ng/dL (.)
== END ==
PROVIDERS: Family Provider Family Medicine; PCP Family Medicine; Referring Provider Obstetrics & Gynecology; Visit Provider Obstetrics & Gynecology
DX: L68.0 Hirsutism (principal); E03.9 Hypothyroidism, unspecified
CPT/HCPCS: 36415; 83001; 83002; 84402; 84403; 84439; 84443

== ENCOUNTER → 2021-03-16 07:05 | Outpatient (CLI) | payer OTHER, SELFPAY ==
[2021-03-16 08:25] LABS: Glucose 101 mg/dL (70-100)
[2021-03-17 08:12] LABS: Insulin Level Total 10.1 uIU/mL (2.6-24.9)
== END ==
PROVIDERS: Family Provider Family Medicine; PCP Family Medicine; Referring Provider Obstetrics & Gynecology; Visit Provider Obstetrics & Gynecology
DX: E28.2 Polycystic ovarian syndrome (principal); L68.0 Hirsutism
CPT/HCPCS: 36415; 82947; 83525

== ENCOUNTER → 2021-04-27 11:11 | Outpatient (CLI) | payer OTHER, SELFPAY ==
[2021-04-27 12:53] LABS: Appearance Urine UA CLEAR; Bilirubin Urine UA NEGATIVE (NEGATIVE); Color Urine UA YELLOW; Glucose Urine UA NEGATIVE (Negative); Ketones Urine UA NEGATIVE (NEGATIVE); Leukocyte Esterase Urine UA 2+ (NEGATIVE); Nitrite Urine UA NEGATIVE (Negative); Occult Blood Urine UA 2+ (Negative); Protein Urine UA 1+ (Negative); Urobilinogen Urine UA 0.2 E.U./dL (0.2)
[2021-04-27 13:07] LABS: pH Urine UA 6.5 (4.5-8.0)
[2021-04-27 13:16] LABS: Bacteria Urine Moderate (10-30); RBC Urine 10-30/HPF (0-5/HPF); Squamous Epithelial Cell Urine 0-1 /HPF (0-5/HPF); WBC Urine 30-100/HPF (0-5/HPF)
[2021-04-27 13:17] LABS: Culture Indicated Urine Specimen Cultured
== END ==
PROVIDERS: Family Provider Family Medicine; PCP Family Medicine; Referring Provider Family Medicine; Visit Provider Family Medicine
DX: R30.0 Dysuria (principal)
CPT/HCPCS: 81003; 81015; 87077; 87086; 87186

== ENCOUNTER → 2022-01-20 13:17 | Outpatient (CLI) | payer OTHER, SELFPAY ==
[2022-01-20 18:08] LABS: TSH w/ Reflex to FT4 2.01 uIU/mL (0.47-4.68)
== END ==
PROVIDERS: Family Provider Family Medicine; PCP Family Medicine; Referring Provider Family Medicine; Visit Provider Family Medicine
DX: E03.9 Hypothyroidism, unspecified (principal)
CPT/HCPCS: 36415; 84443

== ENCOUNTER → 2022-08-22 16:51 | Outpatient (CLI) | payer OTHER, SELFPAY ==
--- NOTE | 2022-08-22 16:52 | DI.MG.S_ITS ---
BILATERAL DIGITAL SCREENING MAMMOGRAM 3D/2D WITH CAD: 08/22/2022 CLINICAL: Routine screening. Family history of breast cancer. Comparison is made to exams dated: 05/19/2020 mammogram, 04/23/2019 mammogram, and 03/17/2017 mammogram - [facility]. There are scattered areas of fibroglandular density in both breasts (category b / 25%-50% glandular tissue). Current study was also evaluated with a Computer Aided Detection (CAD) system. No significant masses, calcifications, or other findings are seen in either breast. There has been no significant interval change. IMPRESSION: NEGATIVE There is no mammographic evidence of malignancy. A 1 year screening mammogram is recommended. Based on Tyrer-Cuzick model (a risk assessment model), the patient's lifetime risk is 20.2% and her 10 year risk is 4.1%. If a patient has an elevated risk, a more comprehensive evaluation should be considered and/or a referral to a genetic counselor. The [place] [employer], [place] [employer], and NCCN Guidelines advise the consideration of Breast MRI as an adjunct to screening mammography in patients whose Lifetime risk to develop breast cancer is 20% or higher. This exam was interpreted at Station ID: [id number]. NOTE: For mammograms, a report in lay terms will be sent to the patient. Approximately 15% of breast malignancies will not be visualized mammographically. In the management of a palpable breast mass, a negative mammogram must not discourage biopsy of a clinically suspicious lesion. Electronically Signed By: Leonard Silva M.D., jr/idania:08/23/2022 14:05:01 letter sent: Normal Exam ACR BI-RADS Category 1: Negative 3341F
== END ==
PROVIDERS: Family Provider Family Medicine; PCP Family Medicine; Referring Provider Family Medicine; Visit Provider Family Medicine
DX: Z12.31 Encounter for screening mammogram for malignant neoplasm of breast (principal); Z80.3 Family history of malignant neoplasm of breast
CPT/HCPCS: 77063; 77067

== ENCOUNTER 2023-09-05 10:42 | Day surgery (SDC) | payer OTHER, SELFPAY ==
--- NOTE | 2023-09-05 | PATH_ITS ---
[facility] Accession Number: [id number] No. of containers..01 Tissue . 01 Material submitted: . endometrium - ENDOMETRIAL CURRETTINGS . 01 Diagnosis: ENDOMETRIUM, CURETTINGS: Proliferative phase endometrium. Fragment with features suggestive of lower uterine segment polyp (mixed endometrial/endocervical-type polyp). Negative for significant cytologic atypia, hyperplasia, and malignancy. MRV 09/08/2023 1742 Local . 01 Electronically signed: . Cristina Garay MD, Pathologist NPI- [id number] . 01 Gross description: . ENDOMETRIAL CURRETTINGS: Received in formalin are minute fragments of mucoid and hemorrhagic material measuring 1.5 x 1.5 x 0.2 cm in aggregate. Submitted in toto in 1 cassette. /CR 09/06/20232011 Local . 01 Pathologist provided ICD-10: N92.0 . 01 CPT . 986369 Specimen Comment: A courtesy copy of this report has been sent to [phone] Performed at: 01 [facility] [address] [place] [address], [place], [place] [id number] MD Robin Chapman MD Phone: [phone]
[2023-09-05 11:01] VITALS: BP 157/92; PULSE 94; RESP 17; TEMP 35.9; O2SAT 99; BMI 28.1
[2023-09-05] MEDS: LACTATED RINGERS 1,000 ML 21 ML IV (11:35)
--- NOTE | 2023-09-05 13:40 | P.HPOB_ITS ---
History of Present Illness History of Present Illness Reason for admission: vaginal bleeding Narrative: Stacey Juárez is a 48 year old female 3 para 3 with menorrhagia. She presents for a D&C hysteroscopy with NovaSure endometrial ablation [facility] Medical History (Updated 08/20/23 @ 17:41 by Azeb Duong MD) Hypothyroidism Surgical History History of third molar tooth extraction (1995) Social History marital status: household members: spouse Smoking Status: Never smoker alcohol intake: current substance use type: does not use Meds Home Medications and Allergies Home Medications Medication Instructions Recorded Confirmed Type levothyroxine 112 mcg tablet See Rx Instructions .Route 08/01/22 09/05/23 Rx .COMPLEX #90 tabs ketoconazole 2 % topical cream 1 applic topical BID #30 grams 04/20/23 08/14/23 Rx Allergies Allergy/AdvReac Type Severity Reaction Status Date / Time No Known Allergies Allergy Uncoded 09/05/23 11:00 Exam Vital Signs (past 8 hours): - 09/05/23 11:01 Temperature 96.7 F L Pulse Rate 94 H Respiratory Rate 17 Blood Pressure 157/92 H Pulse Oximetry 99 Oxygen Delivery Method Room Air Oxygen Delivery Method Room Air Narrative Exam Narrative: HEENT: No thyromegaly, no anterior cervical or supraclavicular lymphadenopathy. Lungs:Clear to auscultation bilaterally, no wheezes. Cardiovascular: Regular rate and rhythm, no murmurs, rubs, or gallops. Abdomen: No scars. No hepatosplenomegaly. No masses palpable. External genitalia: Normal Vagina: Normal Cervix: Normal Bimanual exam: 8 Week size anteverted uterus. Mobile. Extremities: No edema Assessment & Plan Assessment & Plan narrative: Assessment: 48-year-old 3 para 3 with menorrhagia Negative endometrial biopsy Plan: D&C hysteroscopy with NovaSure endometrial ablation The risks, benefits, and alternatives to the procedure were explained to the patient. The risks including bleeding, infection, and uterine perforation. She understands these risks and agrees to proceed. A full par Q was held and consent form was signed.
--- NOTE | 2023-09-05 13:43 | PM.PREOP ---
Pre-operative Note Interval Note History & Physical reviewed/Exam performed by Physician: Yes Changes to H&P: No H&P completed within 30 days and has changed as indicated here:: 09/05/23
--- NOTE | 2023-09-05 14:59 | SUR.OPER ---
Lithotomy on padded OR bed, head on pillow, arms secured on padded arm boards at <90 degrees abduction. Legs secured in padded yellow fins stirrups.
--- NOTE | 2023-09-05 15:09 | PM.GYNOP.1 ---
Operative Date/Time/Diagnoses Date of procedure: 09/05/23 Time of procedure: 15:09 Pre-op diagnosis: Menorrhagia Post-op diagnosis: same Procedure & Clinicians Procedure: Procedures Operation Date: 09/05/23 11:45 Actual Procedure Side Surgeon p Hysteroscopy D&C w/ Novasure Ablation Azeb Duong MD Indications: 48-year-old 3 para 3 with increasingly worsening menorrhagia and anemia. Surgeon: Azeb Duong Anesthesia Type: General (LMA) Operative Notes Findings: 8 week size anteverted uterus Very thickened lining of the uterus, especially posteriorly Both fallopian tube ostia observed Closure Type: not applicable Specimen(s): endometrial curettings Estimated blood loss (mL): 10 Blood products transfused: none Procedure in detail: After informed consent was obtained, the patient was taken to the operating room where she was placed in the dorsal supine position. After adequate LMA general anesthesia was achieved, she was placed in the dorsal lithotomy position, and prepped and draped in the usual sterile fashion. A time-out was performed. A bivalve speculum was placed into the vagina and the anterior lip of the cervix was grasped with a single-tooth tenaculum. The cervical os was sequentially dilated to the # 8 Hegar dilator. The hysteroscope pass easily into the endometrial cavity. Both fallopian tube ostia were observed. There were no fibroids visualized. Gentle sharp curettage was performed yielding a large amount of endometrial curettings. The uterus was measured from the internal os to the fundus and measured 4.5 cm. This was set on the NovaSure catheter and the generator. The NovaSure catheter passed easily into the endometrial cavity and was opened. The width of the uterus was 3.6 cm. This was set on the generator. This indicated a power of 89 w. The cervix was capped, the cavity assessment was performed and passed. The cycle was initiated and lasted 1 minute and 45 seconds. The cervix was uncapped, the NovaSure catheter was closed and removed from the uterus. Single-tooth tenaculum was removed from the anterior lip of the cervix. The bivalve speculum was removed from the vagina. Sponge, lap, and instrument counts were correct x2. The patient tolerated the procedure well, and was taken to PACU in stable condition. Complications: none Post-operative Condition: stable Disposition: PACU Plan for aftercare: Home after recovery
[2023-09-05 15:15] VITALS: BP 144/88; PULSE 88; RESP 15; TEMP 36.6; O2SAT 95
[2023-09-05 15:20] VITALS: BP 150/87; PULSE 81; RESP 12; TEMP 36.6; O2SAT 96
[2023-09-05 15:25] VITALS: BP 142/91; PULSE 70; RESP 12; TEMP 36.4; O2SAT 96
[2023-09-05 15:35] VITALS: BP 141/91; PULSE 68; TEMP 36.1; O2SAT 97
== END 2023-09-05 16:20 | disposition home or self-care (01) ==
PROVIDERS: Family Provider Family Medicine; PCP Family Medicine; Referring Provider Obstetrics & Gynecology; Visit Provider Obstetrics & Gynecology
PROC: 0U5B8ZZ Destruction of Endometrium, Via Natural or Artificial Opening Endoscopic (ICD-10-PCS; CPT 58563; principal; 2023-09-05 11:45)
DX: N92.0 Excessive and frequent menstruation with regular cycle (principal)
CPT/HCPCS: 58563; J1885; J2250; J2405; J2704; J3010

== ENCOUNTER → 2023-09-07 15:58 | Outpatient (CLI) | payer OTHER, SELFPAY ==
--- NOTE | 2023-09-07 15:59 | DI.MG.S_ITS ---
BILATERAL DIGITAL SCREENING MAMMOGRAM 3D/2D WITH CAD: 09/07/2023 CLINICAL: Routine screening. Family history of breast cancer. Comparison is made to exams dated: 08/22/2022 mammogram, 05/19/2020 mammogram, and 04/23/2019 mammogram - [facility]. There are scattered areas of fibroglandular density in both breasts (category b / 25%-50% glandular tissue). Current study was also evaluated with a Computer Aided Detection (CAD) system. No significant masses, calcifications, or other findings are seen in either breast. There has been no significant interval change. IMPRESSION: NEGATIVE There is no mammographic evidence of malignancy. A 1 year screening mammogram is recommended. Based on Tyrer-Cuzick model (a risk assessment model), the patient's lifetime risk is 20.1% and her 10 year risk is 4.2%. If a patient has an elevated risk, a more comprehensive evaluation should be considered and/or a referral to a genetic counselor. The [place] [employer], [place] [employer], and NCCN Guidelines advise the consideration of Breast MRI as an adjunct to screening mammography in patients whose Lifetime risk to develop breast cancer is 20% or higher. This exam was interpreted at Station ID: [id number]. NOTE: For mammograms, a report in lay terms will be sent to the patient. Approximately 15% of breast malignancies will not be visualized mammographically. In the management of a palpable breast mass, a negative mammogram must not discourage biopsy of a clinically suspicious lesion. Electronically Signed By: Michelle franklin/idania:09/08/2023 14:01:36 letter sent: Normal Exam ACR BI-RADS Category 1: Negative 3341F
== END ==
PROVIDERS: Family Provider Family Medicine; PCP Family Medicine; Referring Provider Family Medicine; Visit Provider Family Medicine
DX: Z12.31 Encounter for screening mammogram for malignant neoplasm of breast (principal); Z80.3 Family history of malignant neoplasm of breast; R92.323 Mammographic fibroglandular density, bilateral breasts
CPT/HCPCS: 77063; 77067

== ENCOUNTER → 2024-10-02 17:22 | Outpatient (CLI) | payer OTHER, SELFPAY ==
--- NOTE | 2024-10-02 17:24 | DI.MG.S_ITS ---
MM screening mammo BI: 10/02/2024. BI-RADS: 1 CLINICAL: 49-year old female for bilateral screening mammogram. Tyrer-Cuzick lifetime risk of 18.0%. No personal or first-degree family history of breast cancer. Current reported family history of breast cancer: maternal grandmother, paternal grandmother and paternal aunt. PRIOR EXAMS 09/07/2023, 08/22/2022, 05/19/2020, 04/23/2019, 03/17/2017. MAMMOGRAPHY TECHNIQUE: 2D and 3D (tomosynthesis) digital mammographic views obtained, with additional images as needed for full coverage. Current study was also evaluated with a Computer Aided Detection (CAD) system. DENSITY B. There are scattered areas of fibroglandular density. MAMMOGRAPHY FINDINGS Bilateral: No suspicious mass, asymmetry, microcalcification, or other abnormality seen. No significant change from comparison. IMPRESSION: * No evidence of malignancy. RECOMMENDATIONS Bilateral * Annual screening mammography. OVERALL ASSESSMENT CATEGORY BI-RADS-1: Negative. The [place] [employer] recommends annual screening mammography beginning at age 40 for women with average risk of breast cancer. ELECTRONICALLY SIGNED: Ysabel Lane M.D. on 10/03/2024 at 05:45:07 PM PT Interpreting Station ID: [id number]
== END ==
PROVIDERS: PCP Family Medicine; Referring Provider Family Medicine; Visit Provider Family Medicine
DX: Z12.31 Encounter for screening mammogram for malignant neoplasm of breast (principal); Z80.3 Family history of malignant neoplasm of breast
CPT/HCPCS: 77063; 77067